=== PATIENT | male | born 1970 | race African-American/Black ===

== ENCOUNTER 2022-06-17 04:46 | Day surgery (SDC) | payer OTHER ==
[2022-06-11 15:25] VITALS: BMI 26.6
[2022-06-17 11:26] VITALS: PULSE 67; RESP 18
[2022-06-17 12:53] VITALS: BP 118/66
[2022-06-17 14:41] VITALS: TEMP 100
== END 2022-06-17 13:18 | disposition home or self-care (01) ==
LOC: JASU-ENDO 04:46
PROVIDERS: ATTEND Internal Medicine Gastroenterology
PROC: 0DJD8ZZ Inspection of Lower Intestinal Tract, Via Natural or Artificial Opening Endoscopic (ICD-10-PCS; principal; 2022-06-17 11:00)
DX: Z12.11 Encounter for screening for malignant neoplasm of colon (principal)
CPT/HCPCS: 82962

== ENCOUNTER → 2022-08-12 | Day surgery (SDC) | payer OTHER ==
[2022-08-08 16:01] VITALS: BMI 26.6
== END | disposition home or self-care (01) ==
LOC: JASU-ENDO 05:22
PROVIDERS: ATTEND Internal Medicine Gastroenterology
DX: Z53.9 Procedure and treatment not carried out, unspecified reason (principal)